=== PATIENT | female | born 1975 | race Hispanic/Latino ===

== ENCOUNTER 2020-06-08 16:05 | Emergency (ER) | payer SELFPAY ==
--- NOTE | 2020-06-08 16:10 | Event Note ---
ED Screening Note ED Screening Note: intentional od on meth and etoh 3 gm meth 1013 This initial assessment/diagnostic orders/clinical plan/treatment(s) is/are subject to change based on patients health status, clinical progression and re- assessment by fellow clinical providers in the ED. Further treatment and workup at subsequent clinical providers discretion. Patient/guardian urged not to elope from the ED as their condition may be serious if not clinically assessed and managed. Initial orders include: er for eval mhe for si
[2020-06-08] MEDS ORDERED: SODIUM CHLORIDE 0.9% 1000 ML 1,000 ML IV ONE ×2 (16:39→17:52)
[2020-06-08 16:44] LABS: Basophils # (Auto) 0.1 K/mm3 (0.0-0.1); Basophils % (Auto) 1.1 % (0.0-1.8); Eosinophils # (Auto) 0.1 K/mm3 (0.0-0.4); Eosinophils % (Auto) 0.6 % (0.0-4.3); Lymphocytes # (Auto) 1.8 K/mm3 (1.2-5.4); Mean Corpuscular HGB Conc 30 % (30-34); Monocytes # (Auto) 0.5 K/mm3 (0.0-0.8); Monocytes % (Auto) 4.2 % (0.0-7.3); Platelet Count 482 K/mm3 (140-440); Red Blood Count 4.68 M/mm3 (3.65-5.03); Red Cell Distribution Width 19.5 % (13.2-15.2)
[2020-06-08 16:45] LABS: Hematocrit 28.6 % (30.3-42.9); Hemoglobin 8.4 gm/dl (10.1-14.3); Mean Corpuscular Volume 61 fl (79-97)
[2020-06-08] MEDS ORDERED: ZIPRASIDONE MESYLATE 20 MG VIAL IM ONE (16:46)
[2020-06-08] MEDS ORDERED: WATER FOR INJ Sterile (PF) 10 ML ONE (16:49)
--- NOTE | 2020-06-08 16:54 | Emergency Department Report ---
<YURIY MARSHALL - Last Filed: 06/09/20 11:07> History of Present Illness - General Chief Complaint: Psych Stated Complaint: OVERDOSE Time Seen by Provider: 06/08/20 16:46 - Related Data Previous Rx's Medication Instructions Recorded Last Taken Type Iron Fum,Ps/Folic/Bcomp,C No.9 1 each PO DAILY 30 Days #30 capsule 06/08/20 Unknown Rx [Integra Plus Capsule] Allergies Allergy/AdvReac Type Severity Reaction Status Date / Time No Known Allergies Allergy Unverified 06/09/20 06:19 ED Past Medical Hx - Medications Home Medications: Home Medications Medication Instructions Recorded Confirmed Last Taken Type Iron Fum,Ps/Folic/Bcomp,C No.9 1 each PO DAILY 30 Days #30 capsule 06/08/20 Unknown Rx [Integra Plus Capsule] ED Course - Reevaluation(s) Reevaluation #3: 06/09/20 11:08 Patient seen and evaluated by psychiatry team, staffed with Dr. King. Patient currently expressing remorse for which she did and denies any current suicidal ideation. 1013 has been rescinded and no inpatient treatment recommended at this time. Patient to be discharged. ED Medical Decision Making - Lab Data Result diagrams: 06/08/20 16:08 06/08/20 16:08 ED Disposition Clinical Impression: Suicidal ideations, Suicide attempt by drug overdose, Methamphetamine abuse Overdose Qualifiers: Encounter type: initial encounter Injury intent: intentional self-harm Qualified Code(s): T50.902A - Poisoning by unspecified drugs, medicaments and biological substances, intentional self-harm, initial encounter Anemia Qualifiers: Anemia type: unspecified type Qualified Code(s): D64.9 - Anemia, unspecified Acute alcohol intoxication Qualifiers: Complication of substance-induced condition: uncomplicated Qualified Code(s): F10.920 - Alcohol use, unspecified with intoxication, uncomplicated Disposition: DC-01 TO HOME OR SELFCARE Is pt being admited?: No Condition: Stable Additional Instructions: Outpatient COMMUNITY Behavioral Health Resources: [facility] ([facility]) [address] [place] [address] / Saturday thru Saturday - 8am - 5pm [facility] Address: [address] [place] [address] Saturday thru Saturday- 7am-2pm [facility] Address: [address] [place] [address] Saturday thru Saturday: 8:30AM-5PM CRISIS RESOURCES [place] Crisis Line: Suicide Prevention Line: Crisis Text Line: Text START to [phone] Emergency: 911 SUBSTANCE ABUSE PROGRAMS: [facility]: Location: [place], [place] [employer] Address: [address] [place] [address] [facility] Recovery: Address: [address] [place] [address] [facility]: Address: [address] [place] [address] [facility] Community: Address: [address] [place] [address] [facility] Address: [address] [place] [address]. Please contact above numbers to attempt placement into free based program. Medicaid Programs: [facility]: Address: [address] [place] [id number] [facility]: Address: [address] [place] [id number] Prescriptions: Iron Fum,Ps/Folic/Bcomp,C No.9 [Integra Plus Capsule] 1 each PO DAILY 30 Days #30 capsule Referrals: PRIMARY CARE, [Primary Care Provider] - 3-5 Days <ROBBI TAPIA III - Last Filed: 06/11/20 04:38> History of Present Illness - General Source: patient Mode of arrival: Wheelchair Limitations: No Limitations - History of Present Illness Initial Comments: Patient is a 45-year-old female that presents emergency room with overdose on methamphetamines. Patient states at 3 PM to 3:30 PM she took 3 g of meth orally and took 4 shots of hard alcohol. Patient states she took all this with the idea of killing herself. Patient states she is depressed and she is tired of living. Patient states she wants to . Patient denies hallucinations. Patient denies pain. Patient denies headache. Patient denies blurry vision. Patient denies chest pain or shortness of breath. Patient denies palpitations. Patient denies fever and chills. Patient denies homicidal ideation. Patient complains of anxiety. Patient denies recent travel. Patient denies recent international travel. Patient denies exposure to the novel coronavirus. Patient denies sick contacts. Patient denies fever and chills. Patient denies cough. Patient denies diarrhea. Patient denies coming in contact with anybody with symptoms of the novel coronavirus. Complaint: intentional overdose -: Sudden Intent: suicide attempt How Overdose Was Discovered: called family/friend Context: Intentional Overdose: relationship problems, work problems, drug/ETOH problems Associated Symptoms: depression Treatments Prior to Arrival: none ED Review of Systems ROS: Stated complaint: OVERDOSE Other details as noted in HPI Constitutional: denies: chills, fever Eyes: denies: eye pain, eye discharge, vision change ENT: denies: ear pain, throat pain Respiratory: denies: cough, shortness of breath, wheezing Cardiovascular: denies: chest pain, palpitations Endocrine: no symptoms reported Gastrointestinal: denies: abdominal pain, nausea, diarrhea Genitourinary: denies: urgency, dysuria, discharge Musculoskeletal: denies: back pain, joint swelling, arthralgia Skin: denies: rash, lesions Neurological: denies: headache, weakness, paresthesias Psychiatric: anxiety, depression, suicidal thoughts. denies: auditory hallucinations, visual hallucinations, homicidal thoughts Hematological/Lymphatic: denies: easy bleeding, easy bruising ED Past Medical Hx - Past Medical History Previous Medical History?: No - Surgical History Past Surgical History?: Yes Additional Surgical History: ORAL/ TUBAL LIG. - Family History Family history: no significant - Social History Smoking Status: Current Every Day Smoker Substance Use Type: Alcohol, Methamphetamines ED Physical Exam - General Limitations: No Limitations General appearance: alert, anxious - Head Head exam: Present: atraumatic, normocephalic - Eye Eye exam: Present: normal appearance - ENT ENT exam: Present: mucous membranes dry - Neck Neck exam: Present: normal inspection - Respiratory Respiratory exam: Present: normal lung sounds bilaterally. Absent: respiratory distress, wheezes, rales - Cardiovascular Cardiovascular Exam: Present: regular rate, normal rhythm, tachycardia, normal heart sounds. Absent: irregular rhythm, systolic murmur, diastolic murmur, rubs, gallop - GI/Abdominal GI/Abdominal exam: Present: soft, normal bowel sounds. Absent: distended, tenderness, guarding - Rectal Rectal exam: Present: deferred - Extremities Exam Extremities exam: Present: normal inspection - Back Exam Back exam: Present: normal inspection - Neurological Exam Neurological exam: Present: alert, oriented X3 - Psychiatric Psychiatric exam: Present: depressed, agitated, anxious, suicidal ideation - Skin Skin exam: Present: warm, dry, intact, normal color. Absent: rash ED Course Vital Signs 06/08/20 06/08/20 06/08/20 16:13 18:42 18:44 Temperature 99.1 F Pulse Rate 67 100 H Respiratory 20 18 18 Rate Blood Pressure 180/163 Blood Pressure 118/73 [Right] O2 Sat by Pulse 99 100 100 Oximetry 06/08/20 06/08/20 06/08/20 19:15 19:31 20:00 Temperature Pulse Rate 100 H 99 H 97 H Respiratory 21 15 17 Rate Blood Pressure 118/73 123/68 118/77 Blood Pressure [Right] O2 Sat by Pulse 99 97 98 Oximetry 06/08/20 06/08/20 06/08/20 20:15 20:30 20:45 Temperature Pulse Rate 99 H 94 H 95 H Respiratory 19 15 18 Rate Blood Pressure 118/77 112/48 112/48 Blood Pressure [Right] O2 Sat by Pulse 100 98 99 Oximetry 06/08/20 06/08/20 06/08/20 21:15 21:30 21:45 Temperature Pulse Rate 93 H 91 H 90 Respiratory 18 18 Rate Blood Pressure 126/81 118/76 118/76 Blood Pressure [Right] O2 Sat by Pulse 100 99 100 Oximetry 06/08/20 06/08/20 06/08/20 22:00 22:15 22:30 Temperature Pulse Rate 90 89 88 Respiratory 13 18 13 Rate Blood Pressure 119/74 119/74 115/75 Blood Pressure [Right] O2 Sat by Pulse 100 99 98 Oximetry 06/08/20 06/08/20 06/09/20 22:45 23:47 00:39 Temperature Pulse Rate 91 H Respiratory 13 Rate Blood Pressure 115/75 115/75 115/75 Blood Pressure [Right] O2 Sat by Pulse 100 Oximetry 06/09/20 08:08 Temperature 98.4 F Pulse Rate 80 Respiratory 18 Rate Blood Pressure Blood Pressure 155/77 [Right] O2 Sat by Pulse 98 Oximetry - Reevaluation(s) Reevaluation #1: Initial evaluation done. Patient placed on a 1013. Patient will have labs done. The bedside nurse has been instructed to call poison control. 06/08/20 16:55 Reevaluation #2: I discussed all results and clinical findings with patient. I discussed plan of care with patient. Patient agrees with plan of care. Patient is medically cleared. Patient will remain on a ER hold and a 1013. Patient's final disposition will come from our psychiatry team. 06/08/20 22:31 - Consultations Consultation #1: I discussed with poison control and the recommendations are below YANELY ANGULO Female : 1975 MedRec# [id number] 06/08/20 17:28 (created 06/08/20 17:58) - Nurse Note by SADIQ ALY Accmook Num: [id number] : 1975 Patient Age: 45 This RN has consulted with Jonathan at poison control. Recommendations for treating meth amphetamine overdose: Treat with benzodiazepines, Hourly EKGs or continuous cardiac monitoring due to Qrs and Qtc abnormalities, expect tachycardia and hypertension. Observation monitoring 6-8 hours or until pt is asymptomatic, treat symptoms until pt returns to baseline. Depending on the quality of the amphetamines, the half life could be 4-5 hours Initialized on 06/08/20 17:58 - END OF NOTE 06/08/20 18:01 Consultation #2: I discussed case again with her and since the patient is calm and not tachycardia more the patient can be medically cleared does not require further observation. 06/08/20 19:25 ED Medical Decision Making - Lab Data Result diagrams: 06/08/20 16:08 06/08/20 16:08 - EKG Data -: EKG Interpreted by Me EKG shows normal: sinus rhythm, axis, intervals, QRS complexes, ST-T waves Rate: tachycardia - Medical Decision Making Patient is a 45-year-old female that presents emergency room for a methamphetamine overdose as a suicide attempt. Patient states she wanted to kill her self. After initial evaluation, the patient was placed on a 1013. Patient had labs done which were essentially unremarkable except for anemia. Patient medically cleared. Poison control was contacted and and poison control recommendations were received. Poison control recommendation for follow. Patient was monitored for adequate amount of time. Patient's tachycardia resolved. Patient had a CIWA protocol placed. Patient is medically cleared and the patient's final disposition will come from our psychiatry mental health team. - Differential Diagnosis Overdose, electrolyte imbalance, suicidal ideation, suicide attempt Critical Care Time: Yes Critical care time in (mins) excluding proc time.: 35 Critical care attestation.: If time is entered above; I have spent that time in minutes in the direct care of this critically ill patient, excluding procedure time. Critical Care Time: 35 minutes ED Disposition Is pt being admited?: No Does the pt Need Aspirin: No Time of Disposition: 22:31
[2020-06-08 16:56] LABS: Alanine Aminotransferase 15 units/L (7-56); Albumin 4.5 g/dL (3.9-5); Blood Urea Nitrogen 8 mg/dL (7-17); Calcium 8.5 mg/dL (8.4-10.2); Hemolysis Index 26
[2020-06-08 17:00] LABS: INR 1.07 (0.87-1.13)
[2020-06-08 17:12] LABS: BUN/Creatinine Ratio 11
[2020-06-08] MEDS ORDERED: LORazepam 2 MG/ML VIAL IV ONE (17:52)
[2020-06-08 22:02] LABS: HCG Qualitative,Urine Negative (Negative)
[2020-06-08 22:04] LABS: Bacteria,Urine 1+ /HPF (Negative); Bilirubin,Urine NEG (Negative); Blood,Urine NEG (Negative); Color,Urine Straw (Yellow); Mucus,Urine FEW /HPF; Protein,Urine <15 mg/dL mg/dL (Negative); RBC,Urine < 1.0 /HPF (0.0-6.0); Urobilinogen,Urine < 2.0 mg/dL (<2.0)
[2020-06-08 22:05] LABS: Benzodiazepines Screen,Urine Negative; Cocaine Screen,Urine Negative; Methadone Screen,Urine Negative; Opiate Screen,Urine Negative
[2020-06-08 22:18] LABS: Amphetamine Screen,Urine Positive; Cannabinoid Screen,Urine Positive
[2020-06-09 08:09] VITALS: BP 155/77
--- NOTE | 2020-06-09 09:46 | Consultation ---
History of Present Illness - Reason for Consult Consult date: 06/09/20 Reason for consult: overdose - History of Present Psychiatric Illness Per ED note. "Patient is a 45-year-old female that presents emergency room with overdose on methamphetamines. Patient states at 3 PM to 3:30 PM she took 3 g of meth orally and took 4 shots of hard alcohol. Patient states she took all this with the idea of killing herself. Patient states she is depressed and she is tired of living. Patient states she wants to . Patient denies hallucinations. Patient denies pain. Patient denies headache. Patient denies blurry vision. Patient denies chest pain or shortness of breath. Patient denies palpitations. Patient denies fever and chills. Patient denies homicidal ideation. Patient complains of anxiety." During my interview with 45y/o Apple Carreon, she is sitting on side of bed. She is smiling, calm and cooperative. She is pleasant and polite. The patient says she came to the hospital after taking meth to harm herself because her had taken her daughter and she couldn't see her. The patient now says, "I'm doing a lot better, and laying here I realized that was the most selfish and stupid thing I could have done." She then says, "my daughter doesn't deserve that." The patient says she works "60 to 70 hours a week at [employer]" and says she was just feeling stressed on top of that. When asked was she still suicidal somewhat, the patient says "absolutely not, definitely not." She says, "ma'am I'm no way suicidal and wouldn't do such a crazy thing again." She denies ever having an attempt prior to this, or any past psychiatric history. The patient also denies being on any psychiatric medications. She says she "used to do meth but only took it this time because her friend offered it to her." She says, "on top of that I was upset about my daughter." The patient denies any fear or feelings of endangerment. She also denies hallucinations of any kind. Recommended therapy to the patient and also gave her a number to call for appointment. PAST PSYCHIATRIC HISTORY Diagnoses: Denies Suicide attempts or Self-harm behavior: Denies other than this one Prior psychiatric hospitalizations: Denies Substance Abuse history: Methamphetamine Previous psychiatric medications tried: Denies Outpatient treatment: denies PAST MEDICAL HISTORY: none reported Family Psychiatric History: None reported or documented SOCIAL HISTORY Marital Status: Living Arrangements: with a friend Employment Status: employed Access to guns/weapons: Denies Education: some college History of Abuse: none reported Legal History: none reported REVIEW OF SYSTEMS Constitutional: Negative for weight loss ENT: Negative for stridor Respiratory: Negative for cough or hemoptysis All other systems reviewed and are negative MENTAL STATUS EXAMINATION General Appearance and Behavior: Age appropriate, good hygiene, wearing appropriate clothes, good eye contact, cooperative polite with questioning. Cooperation: Participating/engaged Psychomotor Behavior: unremarkable and within normal limits Mood: "much better" Affect and affective range: congruent with mood Thought Process: goal directed Thought Content: None Speech: Normal volume, Regular rate and rhythm, Suicidal Ideation: Denies Homicidal Ideation: Denies Hallucinations: Denies Delusions: None elicited Impulse Control: Unimpaired Insight and Judgment: Normal insight and judgment, Memory: Normal Attention: Normal Orientation: Alert, oriented Assessment and Plan (1) Acute Stress Recation (F43.0) Current Visit: Yes Status: Acute (2) Methamphetamine Use Disorder (F15.20) Treatment plan d/c 1013 No meds at this time Sitter: Defer to primary Medical: per primary Disposition: Do not Recommend acute psychiatric inpatient. The patient understands that if suicidal thoughts or tendencies are to arise she is to seek immediate assistance including but not limited to 911/ER, the crisis hotline. She is to abstain from all illicit drug use and alcohol The patient is to establish outpatient psychiatrist The heater planer operator is to further discuss safety plan, and give resources for outpatient psychiatry, and CBT, drug rehab Will sign off. Thank you for this consult Case staffed with Dr. King Medications and Allergies Allergies Allergy/AdvReac Type Severity Reaction Status Date / Time No Known Allergies Allergy Unverified 06/09/20 06:19 Home Medications Medication Instructions Recorded Confirmed Last Taken Type Iron Fum,Ps/Folic/Bcomp,C No.9 1 each PO DAILY 30 Days #30 capsule 06/08/20 Unknown Rx [Integra Plus Capsule] Mental Status Exam - Vital signs Last Vital Signs Temp 98.4 F 06/09/20 08:08 Pulse 80 06/09/20 08:08 Resp 18 06/09/20 08:08 BP 155/77 06/09/20 08:08 Pulse Ox 98 06/09/20 08:08 Results Result Diagrams: 06/08/20 16:08 06/08/20 16:08 Abnormal lab results 06/08/20 06/08/20 06/08/20 Range/Units 16:08 16:08 16:09 WBC 11.2 H (4.5-11.0) K/mm3 Hgb 8.4 L (10.1-14.3) gm/dl Hct 28.6 L (30.3-42.9) % MCV 61 L (79-97) fl MCH 18 L (28-32) pg RDW 19.5 H (13.2-15.2) % Plt Count 482 H (140-440) K/mm3 Seg Neutrophils % 78.1 H (40.0-70.0) % Seg Neutrophils # 8.8 H (1.8-7.7) K/mm3 Glucose 176 H (65-100) mg/dL Salicylates < 0.3 L (2.8-20.0) mg/dL Acetaminophen (10.0-30.0) ug/mL Plasma/Serum Alcohol (0-0.07) % 06/08/20 06/08/20 Range/Units 16:09 16:10 WBC (4.5-11.0) K/mm3 Hgb (10.1-14.3) gm/dl Hct (30.3-42.9) % MCV (79-97) fl MCH (28-32) pg RDW (13.2-15.2) % Plt Count (140-440) K/mm3 Seg Neutrophils % (40.0-70.0) % Seg Neutrophils # (1.8-7.7) K/mm3 Glucose (65-100) mg/dL Salicylates (2.8-20.0) mg/dL Acetaminophen 5.0 L (10.0-30.0) ug/mL Plasma/Serum Alcohol 0.10 H (0-0.07) % All other labs normal.
== END 2020-06-09 12:30 | disposition home or self-care (01) ==
LOC: ED 16:05
DX: T50.902A Poisoning by unspecified drugs, medicaments and biological substances, intentional self-harm, initial encounter (principal); F15.10 Other stimulant abuse, uncomplicated; F10.920 Alcohol use, unspecified with intoxication, uncomplicated; D64.9 Anemia, unspecified; F17.200 Nicotine dependence, unspecified, uncomplicated; Z79.899 Other long term (current) drug therapy
CPT/HCPCS: 36415; 80053; 80307; 81001; 81025; 82550; 84484; 85025; 85610; 93005; 96361; 96372; 96374; 99291; J2060; J3486; J7030; 80320; G0480